=== PATIENT | female | born 1950 | race Hispanic/Latino ===

== ENCOUNTER 2018-02-20 13:43 | Inpatient (IN) | payer MEDICARE ==
[2018-02-20] MEDS ORDERED: Lidocaine/Epi 1% 1:100000 20 ML IJ STA (14:43)
[2018-02-20] MEDS ORDERED: LIDOCAIN/EPI 1-0.001% 10ML INJ SOL IJ ONE (15:14)
--- NOTE | 2018-02-20 15:38 | RAD ---
PROCEDURE: CHEST RADIOGRAPH, 1 VIEW HISTORY: routine med exam COMPARISON: None available. FINDINGS: LUNGS: Clear. PLEURA: No pneumothorax or pleural fluid seen. CARDIOVASCULAR: No radiographic findings to suggest acute or significant cardiovascular disease. OSSEOUS STRUCTURES: No significant abnormalities. VISUALIZED UPPER ABDOMEN: Normal. OTHER FINDINGS: None. IMPRESSION: No active disease.
--- NOTE | 2018-02-20 15:40 | RAD ---
PROCEDURE: Right Knee Radiographs. HISTORY: s/p fall - r/o fx COMPARISON: None. FINDINGS: BONES: Comminuted fracture of the proximal right tibia. This includes an intra-articular component. There is a component of impaction. Impacted, comminuted fracture proximal right tibia. JOINTS: Suprapatellar effusion presumed to be hemarthrosis. JOINT EFFUSION: None. OTHER FINDINGS: None. IMPRESSION: Complex, comminuted fractures proximal right tibia and fibula. Associated joint effusion/hemarthrosis
--- NOTE | 2018-02-20 15:45 | ED PDOC ---
Arrival/HPI - General Chief Complaint: Trauma Time Seen by Provider: 02/20/18 14:36 Historian: Patient - History of Present Illness Narrative History of Present Illness (Text): 02/20/18 16:22 A 67 year old female, whose past medical history includes hypertension, menopuase, and diabetes type 2, presents to the emergency department complaining of s/p trip and fall. Patient reports she was closing the door, however resulted in slipping hand from doorknob, and fell backwards, tumbling down stairs. Patient notes pain to back of head and right knee pain. States she is unable to bare weight onto right knee. Patient denies any LOC, chest pain, shortness of breath, abdominal pain, or any other complaints at this time. No PMD Past Medical History - Provider Review Nursing Documentation Reviewed: Yes - Infectious Disease Hx of Infectious Diseases: None - Reproductive Menopause: Yes - Cardiac Hx Hypertension: Yes - Endocrine/Metabolic Hx Diabetes Mellitus Type 2: Yes - Psychiatric Hx Substance Use: No - Anesthesia Hx Anesthesia Reactions: No Family/Social History - Physician Review Nursing Documentation Reviewed: Yes Family/Social History: No Known Family HX Smoking Status: Light Smoker < 10 Cigarettes Daily Hx Alcohol Use: Yes Frequency of alcohol use: Socially Hx Substance Use: No Allergies/Home Meds Allergies/Adverse Reactions: Allergies moxifloxacin [From Avelox] Allergy (Verified 02/20/18 14:37) RASH Review of Systems - Physician Review All systems were reviewed & negative as marked: Yes - Review of Systems Musculoskeletal: Other (pain to back of head and right knee pain s/p trip and fall) Neurological: absent: Other (no LOC) Physical Exam Vital Signs Reviewed: Yes Vital Signs Temp Pulse Resp BP Pulse Ox 02/20/18 19:27 74 18 138/80 99 02/20/18 18:33 61 18 82/60 L 100 02/20/18 14:13 98.5 F 70 18 163/101 H 98 Temperature: Afebrile Blood Pressure: Hypertensive Pulse: Regular Respiratory Rate: Normal Appearance: Positive for: Well-Appearing Pain Distress: None Mental Status: Positive for: Alert and Oriented X 3 - Systems Exam Head: Present: Laceration (1 1/2 cm laceration to caudal aspect of head) Respiratory/Chest: Present: Clear to Auscultation, Good Air Exchange. No: Respiratory Distress, Accessory Muscle Use Cardiovascular: Present: Regular Rate and Rhythm, Normal S1, S2. No: Murmurs Abdomen: No: Tenderness, Distention, Peritoneal Signs Lower Extremity: Present: Swelling (right knee). No: Normal ROM (decreased ROM to right knee) Neurological: Present: GCS=15, CN II-XII Intact, Speech Normal Psychiatric: Present: Alert, Oriented x 3, Normal Insight, Normal Concentration Medical Decision Making ED Course and Treatment: 02/20/18 Impression: 67 year old female with pain to back of head and right knee pain s/ p trip and fall. Physical exam shows 1 1/2 cm laceration to caudal aspect of head; right knee: decreased ROM and swelling. Plan: -- Right Knee X-Ray -- Chest X-ray -- Lidocaine/Epi 1% -- Reassess and disposition Progress Notes: 02/20/2018 15:36 Chest X-ray IMPRESSION: No active disease. Dictator: Kale Mike MD 02/20/2018 15:38 Right Knee X-ray IMPRESSION: Complex, comminuted fractures proximal right tibia and fibula. Associated joint effusion/hemarthrosis. Dictator: Kale Mike MD 02/20/2018 18:[address] IMPRESSION: No CT evidence of acute intracranial hemorrhage. Poorly defined slightly hypderdense process in the left parietal lobe with two small calcifications and evidence of association with a vessel. Bilateral white matter hypoattenuation most consistent with chronic ischemic small vessel changes. Known history of AVM. Recommend comparison with prior imaging which si not available at time of interpretation. Follow-up as warranted. Evidence of right posterior parietal scalp injury with skin justin noted. Partial visualization of maxillary sinus disease with evidence of mucous retention cysts versus polyps. Dictator: Reta Kolb MD 02/20/18 19:[address] Roberts for admission. Also talked to Dr. Perla, orthopedic, to see patient tomorrow morning. Patient's right knee placed in immobilizer. 02/20/2018 20:17 Lower Extremity IMPRESSION: Slightly impacted comminuted fracture through the proximal right tibial metaphysis with fracture lines extending to the level of the tibial plateau posteriorly and laterally. Comminuted fracture involving the proximal fibula with displaced fracture fragments. Tricompartmental degenerative changes with joint line spurring. Lipohemarthrosis. Evidence of hematoma with some acute blodo at the posterior aspect of the proximal fibula. Small fragments placed into the soft tissue. Dictator: Reta Kolb MD - Lab Interpretations Lab Results: 02/20/18 17:54 02/20/18 17:54 Lab Results 02/20/18 17:55: Blood Type A NEGATIVE, Antibody Screen Negative, BBK History Checked No verified bt 02/20/18 17:54: Sodium 140, Potassium 3.7, Chloride 99, Carbon Dioxide 30, Anion Gap 14, BUN 19, Creatinine 0.5 L, Est GFR ( Amer) > 60, Est GFR ( Non-Af Amer) > 60, Random Glucose 117 H, Calcium 9.1, Total Bilirubin 0.2, AST 41 H, ALT 25, Alkaline Phosphatase 96, Total Protein 6.9, Albumin 3.9, Globulin 3.0, Albumin/Globulin Ratio 1.3 02/20/18 17:54: PT 12.2, INR 1.07, APTT 27.8 02/20/18 17:54: WBC 13.9 H, RBC 4.37, Hgb 14.0, Hct 40.6, MCV 92.9, MCH 32.0, MCHC 34.5, RDW 13.0, Plt Count 216, MPV 9.7, Gran % 83.9 H, Lymph % (Auto) 9.3 L , Guthrie % (Auto) 6.2 H, Eos % (Auto) 0.3 L, Baso % (Auto) 0.3, Gran # 11.68 H, Lymph # (Auto) 1.3, Guthrie # (Auto) 0.9 H, Eos # (Auto) 0.0, Baso # (Auto) 0.04 - RAD Interpretation Radiology Orders: 02/20/18 14:42 KNEE RIGHT 2 VIEWS (AP & LAT) [RAD] Stat 02/20/18 15:20 CHEST ONE VIEW [RAD] Stat 02/20/18 16:26 EXT LOWER W/O CONTRAST RIGHT [CT] Stat HEAD W/O CONTRAST [CT] Stat - Medication Orders Current Medication Orders: Sodium Chloride (Sodium Chloride 0.9%) 1,000 mls @ 250 mls/hr IV .Q4H ONE Stop: 02/20/18 22:39 Last Admin: 02/20/18 18:57 Dose: 250 mls/hr eMAR Start Stop Document 02/20/18 18:57 EQ (Rec: 02/20/18 18:57 EQ [id number]) Intravenous Solution Start Date 02/20/18 Start Time 18:57 Discontinued Medications Ketorolac Tromethamine (Toradol) 30 mg IVP STAT STA Stop: 02/20/18 16:35 Last Admin: 02/20/18 17:34 Dose: 30 mg MAR Pain Assessment Document 02/20/18 17:34 EQ (Rec: 02/20/18 17:34 EQ [id number]) Pain Reassessment Is this a pain reassessment? No Sleep Is patient sleeping during reassessment? No Presence of Pain Presence of Pain Yes IVP Administration Document 02/20/18 17:34 EQ (Rec: 02/20/18 17:34 EQ [id number]) Charges for Administration # of IVP Administrations 1 Lidocaine/Epinephrine (Lidocaine/Epi 1% 1:798005 20 Ml) 7 ml IJ STAT STA Stop: 02/20/18 14:44 Last Admin: 02/20/18 17:34 Dose: Not Given Non-Admin Reason: Patient Refused Morphine Sulfate (Morphine) 2 mg IVP STAT STA Stop: 02/20/18 19:25 Last Admin: 02/20/18 19:30 Dose: 2 mg MAR Pain Assessment Document 02/20/18 19:30 EQ (Rec: 02/20/18 20:47 EQ [id number]) Pain Reassessment Is this a pain reassessment? No Sleep Is patient sleeping during reassessment? No Presence of Pain Presence of Pain Yes IVP Administration Document 02/20/18 19:30 EQ (Rec: 02/20/18 20:47 EQ [id number]) Charges for Administration # of IVP Administrations 1 - Scribe Statement The provider has reviewed the documentation as recorded by the Lynn Neri Provider Scribe Attestation: All medical record entries made by the Scribe were at my direction and personally dictated by me. I have reviewed the chart and agree that the record accurately reflects my personal performance of the history, physical exam, medical decision making, and the department course for this patient. I have also personally directed, reviewed, and agree with the discharge instructions and disposition. Disposition/Present on Arrival - Present on Arrival Any Indicators Present on Arrival: No History of DVT/PE: No History of Uncontrolled Diabetes: No Urinary Catheter: No History of Decub. Ulcer: No History Surgical Site Infection Following: None - Disposition Have Diagnosis and Disposition been Completed?: Yes Diagnosis: Scalp laceration, Knee fracture, right Disposition: HOSPITALIZED Disposition Time: 16:10 Condition: STABLE
[2018-02-20 17:57] LABS: BASO # 0.04 K/mm3 (0.0-2.0); BASO % 0.3 % (0.0-3.0); EOS % 0.3 % (1.5-5.0); GRAN # 11.68 (1.4-6.5); GRAN % 83.9 % (50.0-68.0); LYMPH # 1.3 (1.2-3.4); LYMPH % 9.3 % (22.0-35.0); MEAN CELL VOLUME 92.9 fl (80.0-105.0); MEAN CORPUSCULAR HGB CONC 34.5 g/dl (31.0-37.0); MEAN PLATELET VOLUME 9.7 fl (7.0-11.0); MONO # 0.9 (0.1-0.6); MONO % 6.2 % (1.0-6.0); RBC 4.37 10^6/uL (3.5-6.1); WHITE BLOOD COUNT 13.9 10^3/ul (4.5-11.0)
[2018-02-20 18:09] LABS: ALB/GLOB RATIO 1.3 (1.1-1.8); ALBUMIN 3.9 g/dL (3.0-4.8); ALT/SGPT 25 U/L (7-56); AST/SGOT 41 U/L (14-36); BLOOD UREA NITROGEN 19 mg/dL (7-21); CALCIUM 9.1 mg/dL (8.4-10.5); GFR AFRICAN-AMERICAN > 60; GFR NON-AFRICAN AMERICAN > 60
[2018-02-20 18:21] LABS: INR 1.07 (0.93-1.08); PARTIAL THROMBOPLASTIN TIME 27.8 Seconds (25.1-36.5); PROTHROMBIN TIME 12.2 SECONDS (9.4-12.5)
[2018-02-20] MEDS ORDERED: Morphine 2 mg/ml ISec IVP STA ×2 (18:25→19:24)
[2018-02-20] MEDS ORDERED: Morphine 4 mg/ml ISec IVP STA (18:26)
[2018-02-20] MEDS ORDERED: Sodium Chloride 0.9% 1,000 ML IV ONE (18:40)
--- NOTE | 2018-02-20 18:51 | CT ---
EXAM: CT Head Without Intravenous Contrast CLINICAL HISTORY: 67 years old, female; Injury or trauma; Fall; Initial encounter; Blunt trauma (contusions or hematomas); Consciousness not specified; Patient HX: HX: Avm; Additional info: R/O ich FX TECHNIQUE: Axial computed tomography images of the head/brain without intravenous contrast. All CT scans at this facility use one or more dose reduction techniques, viz.: automated exposure control; ma/kV adjustment per patient size (including targeted exams where dose is matched to indication; i.e. head); or iterative reconstruction technique. Coronal and sagittal reformatted images were created and reviewed. COMPARISON: No relevant prior studies available. FINDINGS: Brain: Poorly defined slightly hyperdense process in the left parietal lobe with two small calcifications and evidence of association with a vessel. Bilateral white matter hypoattenuation most consistent with chronic ischemic small vessel changes. No evidence of acute hemorrhage. No edema. Ventricles: No hydrocephalus. Bones/joints: Skull is intact. Soft tissues: Evidence of right posterior parietal scalp injury with skin justin noted. Sinuses: Partial visualization of maxillary sinus disease with evidence of mucous retention cysts versus polyps. No acute sinusitis. Mastoid air cells: No mastoid effusion. IMPRESSION: No CT evidence of acute intracranial hemorrhage. Poorly defined slightly hyperdense process in the left parietal lobe with two small calcifications and evidence of association with a vessel. Bilateral white matter hypoattenuation most consistent with chronic ischemic small vessel changes. Known history of AVM. Recommend comparison with prior imaging which is not available at time of interpretation. Followup as warranted. Evidence of right posterior parietal scalp injury with skin jsutin noted. Partial visualization of maxillary sinus disease with evidence of mucous retention cysts versus polyps.
[2018-02-20 20:15] VITALS: BMI 23.2
--- NOTE | 2018-02-20 20:17 | CT ---
EXAM: CT Right Lower Extremity Without Intravenous Contrast, Knee CLINICAL HISTORY: 67 years old, female; Injury or trauma; Fall; Initial encounter; Blunt trauma; Knee; Right; Additional info: S/P fall - follow up to knee x-rays today TECHNIQUE: Axial computed tomography images of the right knee without intravenous contrast. All CT scans at this facility use one or more dose reduction techniques, viz.: automated exposure control; ma/kV adjustment per patient size (including targeted exams where dose is matched to indication; i.e. head); or iterative reconstruction technique. COMPARISON: DX - KNEE RIGHT 2 VIEWS (AP LAT) 2018-02-20 15:15 FINDINGS: Bones/joints: Slightly impacted comminuted fracture through the proximal right tibial metaphysis with fracture lines extending to the level of the tibial plateau posteriorly and laterally. Comminuted fracture involving the proximal fibula with displaced fracture fragments. Tricompartmental degenerative changes with joint line spurring. Soft tissues: Lipohemarthrosis. Evidence of hematoma with some acute blood at the posterior aspect of the proximal fibula. Small fragments placed into the soft tissue. IMPRESSION: Slightly impacted comminuted fracture through the proximal right tibial metaphysis with fracture lines extending to the level of the tibial plateau posteriorly and laterally. Comminuted fracture involving the proximal fibula with displaced fracture fragments. Tricompartmental degenerative changes with joint line spurring. Lipohemarthrosis. Evidence of hematoma with some acute blood at the posterior aspect of the proximal fibula. Small fragments placed into the soft tissue.
[2018-02-20] MEDS: Oxycodone/Acetaminophen 5/325 mg Tab PO PRN (22:58)
[2018-02-20] MEDS: Lactated Ringer's 1,000 ML IV SCH (23:51)
[2018-02-21 01:20] LABS: URINE BILIRUBIN NEGATIVE (NEGATIVE); URINE BLOOD NEGATIVE (NEGATIVE); URINE GLUCOSE (UA) NEGATIVE (NEGATIVE); URINE LEUKOCYTE ESTERASE SMALL Leu/uL (NEGATIVE); URINE PROTEIN NEGATIVE mg/dL (<30 mg/dL); URINE UROBILINOGEN 0.2 E.U./dL (<1 E.U./dL)
[2018-02-21 01:29] LABS: URINE APPEARANCE CLEAR (CLEAR); URINE COLOR YELLOW (YELLOW)
[2018-02-21 01:31] LABS: URINE BACTERIA TRACE (NEG); URINE RBC 0 - 2 /hpf (0-2)
[2018-02-21] MEDS: Oxycodone/Acetaminophen 5/325 mg Tab PO PRN ×4 (02:03→21:22)
[2018-02-21] MEDS: Pantoprazole 40 mg EC Tab PO SCH ×2 (05:50→17:26)
--- NOTE | 2018-02-21 06:13 | HP ---
DATE OF EXAM: 02/20/2018 HISTORY OF PRESENT ILLNESS: Patient is a 67-year-old female. She is admitted to room 561, bed 1. She presented to the emergency room after a fall. Patient sustained an injury to the right knee with the comminuted fracture. Patient had severe pain at the time. She was brought in by ambulance to the ER. Patient is traveling from [place]. She is not a resident in [place]. The patient's past medical history is significant that she is not taking any medicines for diabetes or hypertension. Patient has no history of smoking. She occasionally takes alcohol. She has been evaluated and admitted to the medical floor. Orthopedic surgeon, Dr. Laurent Dickey has been notified. The primary care physician is Dr. Roberts. I am covering for Dr. Roberts. PHYSICAL EXAMINATION: GENERAL: She is very pleasant and answers all questions and patient has an injury to the back of the head of the right side. She has a laceration, which is clipped and looks perfect. The patient's rest of the body is okay excepting the right knee is injured and the fracture shows comminuted fracture. The knee involving the tibial plateau. VITAL SIGNS: The patient's temperature is 98.5, patient's blood pressure was 138/80, respirations are 18, O2 saturation 99% on room air. HEENT: The patient's head is normocephalic excepting the laceration of the back of the head, which is acute. NECK: The thyroid is not enlarged. Carotid pulses are present. JVP is flat. No lymphadenopathy. LUNGS: Trachea is central. Breath sounds are vesicular. No adventitious sounds. HEART: Normal sinus rhythm. S1, S2 present. No murmurs. ABDOMEN: Soft. Liver and spleen not palpable. CENTRAL NERVOUS SYSTEM: Patient is conscious, rational, oriented. The cranial nerves are intact. Patient's motor, sensory functions are good. I have not checked balance and gait because of the patient's injury to the right knee. The patient is aware of the injury and the necessary treatment. The patient will be seen by the Orthopedic surgeon and will have to perform surgical treatment on the right knee. LABORATORY DATA: The patient's blood work was done in the emergency room at this time. The patient's white count was 13,900, the differential showed 83% polys, 9% lymphocytes and 6% monocytes. Patient's chemistry is within normal limit. Blood sugar was 117 and all chemical parameters including BUN and creatinine are normal. Patient's chest x-ray is clear. The EKG was done. The patient's EKG is not read. Patient will have EKG if it was not done. I was informed that it was. . ADMITTING DIAGNOSIS: Fracture of the right knee. PATIENT HAS ALLERGY TO AVELOX, WHICH IS AN ANTIBIOTIC and that is the significant note. The patient is admitted to the fifth floor, room 561, as mentioned. Suhail Owens MD
[2018-02-21 07:03] LABS: BASO # 0.04 K/mm3 (0.0-2.0); BASO % 0.5 % (0.0-3.0); EOS % 0.5 % (1.5-5.0); GRAN # 6.06 (1.4-6.5); LYMPH % 23.1 % (22.0-35.0); MEAN CELL VOLUME 92.5 fl (80.0-105.0); MEAN CORPUSCULAR HEMOGLOBIN 31.3 pg (25.0-35.0); MEAN CORPUSCULAR HGB CONC 33.8 g/dl (31.0-37.0); MEAN PLATELET VOLUME 9.9 fl (7.0-11.0); MONO # 0.6 (0.1-0.6); MONO % 6.9 % (1.0-6.0); RBC 3.71 10^6/uL (3.5-6.1); RED CELL DISTRIBUTION WIDTH 13.2 % (11.5-14.5); WHITE BLOOD COUNT 8.8 10^3/ul (4.5-11.0)
[2018-02-21 07:21] LABS: HEMOGLOBIN 11.6 g/dL (12.0-16.0)
[2018-02-21 07:49] LABS: ALB/GLOB RATIO 1.3 (1.1-1.8); ALBUMIN 3.2 g/dL (3.0-4.8); ALT/SGPT 20 U/L (7-56); AST/SGOT 17 U/L (14-36); BLOOD UREA NITROGEN 17 mg/dL (7-21); CALCIUM 8.4 mg/dL (8.4-10.5); GFR AFRICAN-AMERICAN > 60; GFR NON-AFRICAN AMERICAN > 60; HDL CHOLESTEROL 58 mg/dL (29-60); URIC ACID 3.9 mg/dL (2.5-6.2)
[2018-02-21 07:59] LABS: FREE T4 1.13 ng/dL (0.78-2.19); LDL CHOLESTEROL 68 mg/dL (0-129); T4 7.4 ug/dL (5.5-11.0)
[2018-02-21] MEDS ORDERED: Potassium Chloride 40 mEq/30 ml LIQ UD PO ONE (08:07)
[2018-02-21] MEDS: Magnesium Sulfate 2 GM in Sodium Chloride 0.9% 100 ML IVPB SCH ×2 (09:00→10:39)
[2018-02-21] MEDS: Levothyroxine 200 MCG TAB PO SCH (10:45)
--- NOTE | 2018-02-21 12:26 | CARD ---
APPROVED REPORT EKG Measurement Heart [id number] <Conclusion> Normal sinus rhythm Normal ECG
--- NOTE | 2018-02-21 12:41 | PN ---
DATE: 02/21/2018 SUBJECTIVE: The patient is seen in room 561, bed 1. The patient is lying in the bed. The patient was seen and admitted by Dr. Owens on 02/20/2018. The patient is seen and examined. The patient's overnight nurse's notes were reviewed. No adverse events were documented. PHYSICAL EXAMINATION: VITAL SIGNS: Noted. The patient is seen lying in the bed comfortable with right knee elevated, right leg elevated. T-max 98.2; heart rate 72-74; blood pressure 138/60, 138/80, 140/72; respirations 18-20; O2 sat 98-99%. HEENT: Head examination normocephalic, atraumatic. HEENT examination shows pink conjunctivae. Anicteric sclerae. No oropharyngeal lesion. No neck rigidity. CHEST: Kyphosis. LUNGS: Shows no rales, crackles or wheezing. CARDIOVASCULAR: S1 and S2. Questionable soft systolic murmur, left sternal border, right second intercostal space, left second intercostal space. ABDOMEN: Soft. Positive bowel sound. Positive surgical scar of lumbar spine surgery. GENITALIA: Female. RECTAL: Deferred. EXTREMITY: Shows positive right knee swelling and right proximal leg swelling with positive right knee immobilizer. No pitting edema noted. MUSCULOSKELETAL: Shows a body mass index of 23.3. NEUROLOGICAL: The patient is alert, awake, oriented x3. Decreased range of motion of the right lower extremity. Gait examination is not tested. DIAGNOSTICS: CBC from 02/21/2018. WBC 8.8, down from 13.9; hemoglobin and hematocrit 11.6 and 34.3; platelet 200,000. Granulocytes 69,000 from 84,000. PT/PTT is normal. Sodium 134, potassium 3.8, chloride 99, CO2 of 28, anion gap 12, BUN 17, creatinine 0.7, GFR greater than 60, glucose 125, uric acid 3.9, calcium 8.4, phosphorus 3, magnesium 1.4. LFTs are normal. Cholesterol 149, triglyceride 101, LDL 68, HDL 58, TSH 1.29, T4 is 7.4. Urine pH 7, specific gravity 1.020, small leukocyte esterase, trace bacteria. Blood type is A negative. The patient's knee x-ray, chest x-ray, CT head and CT of the right lower extremity was reviewed. The patient's imaging studies all reviewed. The patient's all diagnostic data reviewed. IMPRESSION AND PLAN: 1. Status post mechanical fall. 2. Right proximal tibia comminuted fracture with swelling and impacted comminuted fracture of the proximal right tibia and fibula associated with right joint effusion and hemarthrosis. 3. Status post right-sided skull contusion. 4. Chronic small-vessel ischemic disease of the brain. 5. Right posteroparietal scalp soft tissue injury. 6. Maxillary sinus mucus retention cyst versus polyps. 7. History of left brain arteriovenous malformation. 8. History of hypertension, hyperlipidemia, type 2 diabetes mellitus, history of hypothyroidism. The patient has history of lumbar laminectomy for lumbar spinal stenosis, history of tonsillectomy, history of left-sided arteriovenous malformation of the brain, history of tubal ligation. 9. History of tubal ligation. 10. History of hypertensive crises in 07/2017, had a complete workup including carotid Doppler, echocardiogram, stress test, abdominal Doppler, which were negative as the patient. History of uncontrolled hypertension. 11. Transient leukocytosis and granulocytosis. 12. Mild normocytic anemia. 13. Hypomagnesemia. 14. Type 2 diabetes mellitus with hyperglycemia. 15. History of hyperlipidemia. 16. History of hypothyroidism. 17. Pyuria and bacteriuria. 18. Right proximal tibia metaphysis impacted comminuted fracture with fracture line extending to the level of the tibial plateau posteriorly and laterally and comminuted fracture of the proximal fibula with displaced fracture fragment. 19. Right knee tricompartmental degenerative joint disease with joint line spurring. 20. Lipohemarthrosis of the right knee. 21. Right knee posterior aspect proximal fibula hematoma. 22. Right knee joint hematoma. 23. Status post fall. 24. Gait dysfunction. Plan at this time, the patient has been ordered repeat labs. Hemoglobin A1c is pending. Vitamin D 25-hydroxy is pending. Urine cultures are unconnected. Current consultation, Cardiology for preop clearance, Orthopedics. Type and screen are ordered. The patient's is resumed on Fosamax 70 mg weekly, heparin 5000 subcu every 8 for deep venous thrombosis prophylaxis, Ringer's lactate 60 mL an hour, Lipitor 10 mg at bedtime, magnesium sulfate 2 g riders given, Maxipime 1 g IV every 12 for possible urinary tract infection. The patient resumed on Mysoline 50 mg four times daily. The patient is on Percocet 5/325 two tablets every 4 p.r.n. The patient is supplemented with potassium, Protonix 40 daily, Prozac 20 mg daily. The patient is on Synthroid 200 mcg daily, vitamin C 500 mg three times a day, Zofran 4 mg IV every 4 p.r.n. Incentive spirometer ordered. The patient will be put on n.p.o. diet for tomorrow. The patient has been ordered sequential compression devices, ELDA stockings. At present, the patient's further management will be dependent upon the patient's clinical condition, hemodynamic status and as per the patient's response to therapeutic intervention, as per the patient's diagnostic test results and as per recommendation by all the physicians involved in the care of the patient. The patient has been advised about her clinical condition. The patient appears to be at least moderate risk for surgical intervention due to her multiple comorbidities for surgery of the right proximal tibia and fibula fracture. Dictated and electronically signed, not read. Braulio Roberts MD
[2018-02-21] MEDS: Cefepime 1gm in NS 100ml 1 GM/100 ML BAG IVPB SCH ×2 (12:46→21:21)
--- NOTE | 2018-02-21 14:20 | CON ---
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 She apparently tripped while opening a door. No loss of consciousness noted. PAST MEDICAL HISTORY: Includes hypertension, hypercholesterolemia as well as diabetes mellitus. She underwent a stress test recently in [place], it was unremarkable. She has no previous cardiac history. SOCIAL HISTORY The patient does not smoke. REVIEW OF SYSTEMS: The 14-point review of systems was reviewed in detail. No cardiac symptomatology is noted. PHYSICAL EXAMINATION: VITAL SIGNS: Blood pressure is 140/72, heart rate in the 70s. NECK: Negative JVD. LUNGS: Without rales. HEART: Reveal S1, S2. EXTREMITIES: The right lower extremity is in an immobilizer, the left leg without edema. DATA: EKG is within normal limits. Hemoglobin is 11.6, glucose is 125. IMPRESSION: 1. Status post fall. 2. Lower extremity fracture. 3. Diabetes mellitus. 4. Hypertension. 5. Hypercholesterolemia. Given these findings, there are no cardiac issues and no cardiac contraindications to her planned surgery. Aubrey Beckwith MD
--- NOTE | 2018-02-21 14:23 | CON ---
DATE: 02/21/2018 INPATIENT CONSULT REASON FOR CONSULT: Right proximal tibia fracture. HISTORY OF PRESENT ILLNESS: This is a 67-year-old female who presented status post fall yesterday with complaints of right knee pain. The patient denies loss of consciousness and denies any other pain. She denies any numbness or tingling in the right lower extremity. PHYSICAL EXAMINATION: GENERAL: This is a female, in no apparent distress. She is awake, alert and oriented x3. EXTREMITIES: Evaluation of the right knee shows she has an obvious right knee effusion. Her thigh and calf are soft and nontender. She does have some tenderness over the proximal tibia. No gross crepitus is appreciated. No gross varus valgus instability is appreciated; however, the exam is limited secondary to the pain and swelling. Grossly, she is neurovascularly intact. LABORATORY DATA: X-rays show what looks like a bicondylar proximal tibia fracture. There appears to be some comminution. IMPRESSION: Right tibial plateau fracture. PLAN: At this point, I recommend ice, elevation. We will give her some DVT prophylaxis. She had a CAT scan done and we will review that for preoperative planning. For now, we will reassess the soft tissue tomorrow for possible surgery. However, I did explain to the patient that if there is significant amount of swelling, definitive ORIF maybe delayed for up to 2 weeks to allow the swelling to subside. She understands this, we will continue to follow. Laurent Dickey MD
--- NOTE | 2018-02-21 15:17 | CP.PCM.PN ---
Subjective - Date & Time of Evaluation Date of Evaluation: 02/21/18 Time of Evaluation: 14:49 - Subjective Subjective: Medicine progress note: Dr. Roberts Patient seen and examined at bedside. Patient's pain is well controlled, denies any new complaints. Objective - Vital Signs/Intake and Output Vital Signs (last 24 hours): Temp Pulse Resp BP Pulse Ox 98.2 F 72 20 140/72 98 02/21/18 06:00 02/21/18 06:00 02/21/18 06:00 02/21/18 06:00 02/21/18 06:00 Intake and Output: 02/21/18 02/21/18 06:59 18:59 Intake Total 360 360 Balance 360 360 - Medications Medications: Current Medications Ascorbic Acid (Vitamin C 500 Mg Tab) 500 mg PO TID [facility] Last Admin: 02/21/18 13:33 Dose: 500 mg Atorvastatin Calcium (Lipitor) 10 mg PO HS DANA Fluoxetine HCl (Prozac) 20 mg PO HS [facility] Heparin Sodium (Porcine) (Heparin) 5,000 units SC Q8 DANA PRN Reason: Protocol Last Admin: 02/21/18 13:28 Dose: 5,000 units Lactated Ringer's (Lactated Ringer's) 1,000 mls @ 60 mls/hr IV .[id number] [facility] Last Admin: 02/20/18 23:51 Dose: 60 mls/hr Cefepime HCl (Maxipime 1gm) 1 gm in 100 mls @ 100 mls/hr IVPB Q12 DANA PRN Reason: Protocol Last Admin: 02/21/18 12:46 Dose: 100 mls/hr Levothyroxine Sodium (Synthroid) 200 mcg PO DAILY [facility] Last Admin: 02/21/18 10:45 Dose: 200 mcg Non-Formulary Medication (Alendronate Sodium/Vitamin D3 [Fosamax Plus D 70 Mg-5, 600 Iu]) 1 tab PO QWK [facility] Ondansetron HCl (Zofran Inj) 4 mg IVP Q4H PRN PRN Reason: Nausea/Vomiting Oxycodone/Acetaminophen (Percocet 5/325 Mg Tab) 2 tab PO Q4H PRN PRN Reason: Pain, moderate (4-7) Stop: 02/23/18 22:27 Last Admin: 02/21/18 08:49 Dose: 2 tab Pantoprazole Sodium (Protonix Ec Tab) 40 mg PO 0600,1600 [facility] Last Admin: 02/21/18 05:50 Dose: 40 mg Primidone (Mysoline) 50 mg PO QID [facility] Last Admin: 02/21/18 13:33 Dose: 50 mg - Labs Labs: 02/21/18 06:20 02/21/18 06:20 PT 12.2 SECONDS (9.4-12.5) 02/20/18 17:54 INR 1.07 (0.93-1.08) 02/20/18 17:54 APTT 27.8 Seconds (25.1-36.5) 02/20/18 17:54 - Constitutional Appears: Well - Head Exam Head Exam: ATRAUMATIC, NORMAL INSPECTION, NORMOCEPHALIC - Eye Exam Eye Exam: EOMI, Normal appearance, PERRL Pupil Exam: NORMAL ACCOMODATION, PERRL - ENT Exam ENT Exam: Mucous Membranes Moist, Normal Exam - Neck Exam Neck Exam: Full ROM, Normal Inspection. absent: Lymphadenopathy - Respiratory Exam Respiratory Exam: Clear to Ausculation Bilateral, NORMAL BREATHING PATTERN - Cardiovascular Exam Cardiovascular Exam: REGULAR RHYTHM, +S1, +S2. absent: Murmur - GI/Abdominal Exam GI & Abdominal Exam: Soft, Normal Bowel Sounds. absent: Tenderness - Extremities Exam Extremities Exam: Tenderness. absent: Joint Swelling, Pedal Edema Additional comments: Patient's right knee swollen and casted with limtied ROM - Back Exam Back Exam: NORMAL INSPECTION - Neurological Exam Neurological Exam: Alert, Awake, CN II-XII Intact, Normal Gait, Oriented x3 - Psychiatric Exam Psychiatric exam: Normal Affect, Normal Mood - Skin Skin Exam: Dry, Intact, Normal Color, Warm Assessment and Plan - Assessment and Plan (Free Text) Assessment: 67 year old female presenting s/p fall with comminuted tibial diaphysis and fibular fractures. Patient's pain is well controlled at present. Plan Acute fracture - Tib/Fib - Ortho consult: Dr. Perla - NPO after midnight - Hold heparin after midnight - Maxipime; percocet; LR's History HLD - Lipitor History Hypothyroidism - Synthroid History Diabetes - Monitor; no home medications History Hypertension - Monitor; hold hypertension medications for now History Osteoarthritis - Alendonate sodium, Vit C, GI/DVT Prophylaxis - Heparin, Protonix
--- NOTE | 2018-02-21 15:23 | CARD ---
APPROVED REPORT EXAM: Two-dimensional and M-mode echocardiogram with Doppler and color Doppler. INDICATION Hypertension/HCVD 2D DIMENSIONS Left Atrium (2D)3.5 (1.6-4.0cm)IVSd1.0 (0.7-1.1cm) LVDd4.2 (3.9-5.9cm)PWd1.3 (0.7-1.1cm) LVDs2.9 (2.5-4.0cm)FS (%) 30.7 % LVEF (%)58.6 (>50%) M-Mode DIMENSIONS Aortic Root2.40 (2.2-3.7cm)Aortic Cusp Exc.1.30 (1.5-2.0cm) Aortic Valve AoV Peak Eskesvaq903.0cm/Sana Peak GR.6mmHg Mitral Valve MV E Tewnanqm15.2cm/sMV A Mwwiqfri98.4cm/sE/A ratio0.9 TDI E/Lateral E'0.0E/Medial E'0.0 Tricuspid Valve TR Peak Fcegmorv593dw/sRAP [id number] Peak Gr.20mmHg [id number] LEFT VENTRICLE The left ventricle is normal size. There is normal left ventricular wall thickness. The left ventricular function is normal.EF-55-60% There is normal LV segmental wall motion. Transmitral Doppler flow pattern is Grade III-reversible restrictive diastolic dysfunction. No left ventricle thrombus noted on this study. There is no ventricular septal defect visualized. There is no left ventricular aneurysm. There is no mass noted in the left ventricle. RIGHT VENTRICLE The right ventricle is normal size. There is normal right ventricular wall thickness. The right ventricular systolic function is normal. ATRIA The left atrium is mildly dilated. The right atrium size is normal. The interatrial septum is intact with no evidence for an atrial septal defect. AORTIC VALVE The aortic valve is thickened but opens well. There is trace aortic regurgitation. There is no aortic valvular stenosis. There is no aortic valvular vegetation. MITRAL VALVE The mitral valve is thickened but opens well. Mitral regurgitation is mild. There is no mitral valve stenosis. There is no evidence of mitral valve prolapse. TRICUSPID VALVE The tricuspid valve leaflets are thickened , but open well. There is trace to mild tricuspid regurgitation.RVsp-30 mmof hg. There is no tricuspid valve stenosis. There is no tricuspid valve prolapse or vegetation. PULMONIC VALVE The pulmonary valve is normal in structure. There is trace pulmonic valvular regurgitation. There is no pulmonic valvular stenosis. GREAT VESSELS The aortic root is normal in size. The ascending aorta is normal in size. The pulmonary artery is normal. The IVC is normal in size and collapses >50% with inspiration. PERICARDIAL EFFUSION There is no pleural effusion. There is no pericardial effusion. <Conclusion> The left ventricle is normal size. The left ventricular function is normal.EF-55-60% There is trace aortic regurgitation. Mitral regurgitation is mild. There is trace to mild tricuspid regurgitation.RVsp-30 mmof hg. The IVC is normal in size and collapses >50% with inspiration. There is no pericardial effusion.
[2018-02-21] MEDS: Lactated Ringer's 1,000 ML IV SCH (17:26)
[2018-02-21] MEDS ORDERED: Ergocalciferol 50,000 Intl Units Cap PO SCH (19:30)
[2018-02-22] MEDS: Oxycodone/Acetaminophen 5/325 mg Tab PO PRN (01:57)
[2018-02-22] MEDS: Pantoprazole 40 mg EC Tab PO SCH (05:44)
[2018-02-22 06:56] LABS: BASO # 0.05 K/mm3 (0.0-2.0); BASO % 0.6 % (0.0-3.0); EOS # 0.1 (0.0-0.7); EOS % 0.6 % (1.5-5.0); GRAN # 5.14 (1.4-6.5); GRAN % 66.2 % (50.0-68.0); HEMOGLOBIN 11.7 g/dL (12.0-16.0); LYMPH # 1.9 (1.2-3.4); LYMPH % 24.7 % (22.0-35.0); MEAN CELL VOLUME 92.8 fl (80.0-105.0); MEAN CORPUSCULAR HEMOGLOBIN 31.1 pg (25.0-35.0); MEAN CORPUSCULAR HGB CONC 33.5 g/dl (31.0-37.0); MEAN PLATELET VOLUME 9.9 fl (7.0-11.0); MONO # 0.6 (0.1-0.6); MONO % 7.9 % (1.0-6.0); RBC 3.76 10^6/uL (3.5-6.1); RED CELL DISTRIBUTION WIDTH 13.3 % (11.5-14.5); WHITE BLOOD COUNT 7.8 10^3/ul (4.5-11.0)
[2018-02-22 07:43] LABS: ALB/GLOB RATIO 1.2 (1.1-1.8); ALBUMIN 3.2 g/dL (3.0-4.8); ALT/SGPT 19 U/L (7-56); AST/SGOT 22 U/L (14-36); BLOOD UREA NITROGEN 9 mg/dL (7-21); CALCIUM 8.2 mg/dL (8.4-10.5); GFR AFRICAN-AMERICAN > 60; GFR NON-AFRICAN AMERICAN > 60
[2018-02-22] MEDS: Levothyroxine 200 MCG TAB PO SCH (10:30)
[2018-02-22] MEDS ORDERED: Bupivacaine 0.5% Inj(30mL) ONE (11:32)
[2018-02-22] MEDS ORDERED: Propofol 10 mg/ml Inj (20 ML) ONE (11:43)
[2018-02-22] MEDS ORDERED: Rocuronium 10 mg/ml (5 ml) ONE (12:08)
[2018-02-22] MEDS ORDERED: Sevoflurane - Inhalation Anesthetic Liq (250 ml) ONE (12:08)
[2018-02-22] MEDS: Cefepime 1gm in NS 100ml 1 GM/100 ML BAG IVPB SCH ×2 (12:20→21:15)
[2018-02-22] MEDS ORDERED: Magnesium Sulfate 2 GM in Sodium Chloride 0.9% 100 ML IVPB ONE (13:01)
[2018-02-22] MEDS ORDERED: Morphine 1 mg/ml preservative-free Inj(Duramorph) ONE (13:05)
--- NOTE | 2018-02-22 13:32 | PN ---
DATE: 02/22/2018 CARDIOLOGY FOLLOWUP SUBJECTIVE: The patient is comfortable. PHYSICAL EXAMINATION: VITAL SIGNS: Blood pressure is 165/80. NECK: Negative JVD. LUNGS: Without rales. HEART: Reveals S1, S2. EXTREMITIES: Without edema. LABORATORY DATA: Hemoglobin is 11.7. Chemistries, BUN and creatinine unremarkable. The glucose is 140. IMPRESSION: 1. Status post fall. 2. Tibial fracture. 3. Hypertension. 4. Mild anemia. 5. Diabetes mellitus. PLAN: Given these findings, the patient's cardiac status is stable for planned surgery today. Aubrey Beckwith MD
[2018-02-22] MEDS ORDERED: Neostigmine Methylsulfate 3mg/3ml Syringe IV ONE (15:06)
[2018-02-22] MEDS ORDERED: HYDROmorphone 0.5 mg/0.5 ml ISec IVP PRN (15:20)
[2018-02-22] MEDS ORDERED: Lactated Ringer's 1,000 ML IV SCH (15:30)
--- NOTE | 2018-02-22 15:33 | PCM.SURG1 ---
Surgeon's Initial Post Op Note - Surgeon's Notes Surgeon: Max Dickey MD [employer] Professor: German Waldron PA-C, Yesenia Garza PA-C Type of Anesthesia: General Endo Anesthesia Administered By: Dr. Wylie Pre-Operative Diagnosis: Right tibial plateau fx Operative Findings: tourniquet: 111min @300mmHg. Synthes plate Post-Operative Diagnosis: same Operation Performed: Right tibial plateau ORIF Specimen/Specimens Removed: none Estimated Blood Loss: EBL {In ML}: 20 Blood Products Given: N/A Drains Used: No Drains Post-Op Condition: Fair Date of Surgery/Procedure: 02/22/18 Time of Surgery/Procedure: 15:33
--- NOTE | 2018-02-22 15:34 | CP.PCM.PN ---
Subjective - Date & Time of Evaluation Date of Evaluation: 02/22/18 Time of Evaluation: 09:30 - Subjective Subjective: Medicine progress note: Dr. Roberts Patient seen and examined at bedside. Patient's pain is well controlled, she did not have any acute events overnight besides elevated blood pressure ( asymptomatic). She denies any new complaints. Objective - Vital Signs/Intake and Output Vital Signs (last 24 hours): Temp Pulse Resp BP Pulse Ox 99 F 75 20 165/80 H 95 02/22/18 10:05 02/22/18 10:05 02/22/18 10:05 02/22/18 10:05 02/22/18 10:05 Intake and Output: 02/22/18 02/22/18 06:59 18:59 Intake Total 1440 0 Balance 1440 0 - Medications Medications: Current Medications Acetaminophen (Tylenol 325mg Tab) 325 mg PO Q4 PRN PRN Reason: Fever >100.4 F Ascorbic Acid (Vitamin C 500 Mg Tab) 500 mg PO TID [facility] Last Admin: 02/22/18 09:59 Dose: Not Given Atorvastatin Calcium (Lipitor) 10 mg PO [facility] Last Admin: 02/21/18 21:21 Dose: 10 mg Docusate Sodium (Colace) 100 mg PO BID [facility] Last Admin: 02/22/18 09:58 Dose: Not Given Enoxaparin Sodium (Lovenox) 40 mg SC Q24H [facility] PRN Reason: Protocol Ergocalciferol (Drisdol 50,000 Intl Units Cap) 1 cap PO Q7D [facility] Last Admin: 02/21/18 21:21 Dose: 1 cap Fluoxetine HCl (Prozac) 20 mg PO [facility] Last Admin: 02/21/18 21:22 Dose: 20 mg Hydralazine HCl (Apresoline) 10 mg PO Q6H PRN PRN Reason: SBP>=170MMHG&/OR DBP>=100MMMHG Hydromorphone HCl (Dilaudid) 0.5 mg IVP Q15M PRN PRN Reason: Pain, moderate (4-7) Stop: 02/22/18 17:20 Hydromorphone HCl (Dilaudid) 0.5 mg IVP Q4H PRN PRN Reason: Pain, severe (8-10) Lactated Ringer's (Lactated Ringer's) 1,000 mls @ 60 mls/hr IV .[id number] [facility] Last Admin: 02/21/18 17:26 Dose: 60 mls/hr Cefepime HCl (Maxipime 1gm) 1 gm in 100 mls @ 100 mls/hr IVPB Q12 DANA PRN Reason: Protocol Last Admin: 02/22/18 12:20 Dose: 100 mls/hr Lactated Ringer's (Lactated Ringer's) 1,000 mls @ 75 mls/hr IV .[id number] [facility] Stop: 02/22/18 17:31 Cefazolin Sodium 2 gm/ Sodium (Chloride) 100 mls @ 200 mls/hr IVPB Q8H [facility] PRN Reason: Protocol Stop: 02/23/18 03:59 Levothyroxine Sodium (Synthroid) 200 mcg PO DAILY [facility] Last Admin: 02/21/18 10:45 Dose: 200 mcg Metoprolol Tartrate (Lopressor) 25 mg PO BID [facility] Multivitamins/Minerals (Therapeutic-M Tab) 1 tab PO DAILY [facility] Non-Formulary Medication (Alendronate Sodium/Vitamin D3 [Fosamax Plus D 70 Mg-5, 600 Iu]) 1 tab PO QWK [facility] Ondansetron HCl (Zofran Inj) 4 mg IVP Q4H PRN PRN Reason: Nausea/Vomiting Ondansetron HCl (Zofran Inj) 4 mg IVP ONCE PRN PRN Reason: Nausea/Vomiting Oxycodone/Acetaminophen (Percocet 5/325 Mg Tab) 2 tab PO Q4H PRN PRN Reason: Pain, moderate (4-7) Stop: 02/23/18 22:27 Last Admin: 02/22/18 01:57 Dose: 2 tab Pantoprazole Sodium (Protonix Ec Tab) 40 mg PO 0600,1600 [facility] Last Admin: 02/22/18 05:44 Dose: 40 mg Potassium Chloride (K-Dur 20 Meq Er Tab) 20 meq PO BRK [facility] Primidone (Mysoline) 50 mg PO QID [facility] Last Admin: 02/21/18 21:22 Dose: 50 mg - Labs Labs: 02/22/18 06:15 02/22/18 06:15 PT 12.2 SECONDS (9.4-12.5) 02/20/18 17:54 INR 1.07 (0.93-1.08) 02/20/18 17:54 APTT 27.8 Seconds (25.1-36.5) 02/20/18 17:54 - Constitutional Appears: Well - Head Exam Head Exam: ATRAUMATIC, NORMAL INSPECTION, NORMOCEPHALIC - Eye Exam Eye Exam: EOMI, Normal appearance, PERRL Pupil Exam: NORMAL ACCOMODATION, PERRL - ENT Exam ENT Exam: Mucous Membranes Moist, Normal Exam - Neck Exam Neck Exam: Full ROM, Normal Inspection. absent: Lymphadenopathy - Respiratory Exam Respiratory Exam: Clear to Ausculation Bilateral, NORMAL BREATHING PATTERN - Cardiovascular Exam Cardiovascular Exam: REGULAR RHYTHM, +S1, +S2. absent: Murmur - GI/Abdominal Exam GI & Abdominal Exam: Soft, Normal Bowel Sounds. absent: Tenderness - Extremities Exam Extremities Exam: Full ROM, Joint Swelling, Normal Capillary Refill. absent: Pedal Edema - Back Exam Back Exam: NORMAL INSPECTION Additional comments: Patient's right knee swollen and casted with limtied ROM - Neurological Exam Neurological Exam: Alert, Awake, CN II-XII Intact, Normal Gait, Oriented x3 - Psychiatric Exam Psychiatric exam: Normal Affect, Normal Mood - Skin Skin Exam: Dry, Intact, Normal Color, Warm Assessment and Plan - Assessment and Plan (Free Text) Assessment: 67 year old female presenting s/p fall with comminuted tibial diaphysis and fibular fractures. CT Head and CXR negative for acute trauma. Knee XR and Lower Extremity CT with results as mentioned. Patient's pain is well controlled at present. Initial white count elevated, likely reactive; no SIRS criteria, other labs and vitals stable. Yesterday, patient's anti- hypertensives were held, but Cozaar 100 was given early this morning, as patient became hypertensive overnight. Patient will undergo procedure with Dr. Perla today. Patient did show small LE on UA, but is asymptomatic, will observe for now Plan Acute fracture - Tib/Fib - Ortho consult: Dr. Perla - Baljeet; jaswantet; LR's History HLD - Lipitor History Hypothyroidism - Synthroid History Diabetes - Monitor; no home medications History Hypertension - Monitor; hold hypertension medications for now History Osteoarthritis - Alendonate sodium, Vit C GI/DVT Prophylaxis - Heparin, Protonix
--- NOTE | 2018-02-22 15:41 | RAD ---
PROCEDURE: Fluoroscopy up to 1 hour HISTORY: O.R.I.F. TIBIAL PLATEAU FX. (RIGHT) COMPARISON: TECHNIQUE: Fluoroscopy was provided in the operating room. 115.7 seconds of fluoro time. Cumulative dose 4.15 mGy. Four images were submitted FINDINGS: The study shows placement of a plate and multiple screws in the proximal tibia IMPRESSION: As above
--- NOTE | 2018-02-22 16:12 | RAD ---
PROCEDURE: Right Knee Radiographs. HISTORY: pt in pacu, s/p tibial plat ORIF COMPARISON: None. FINDINGS: BONES: Recent internal fixation of tibial fracture. There is a plate on the lateral side with multiple screws. There is also fracture of the proximal fibula JOINTS: Normal. No osteoarthritis. JOINT EFFUSION: None. OTHER FINDINGS: None. IMPRESSION: As above
[2018-02-22] MEDS: HYDROmorphone 0.5 mg/0.5 ml ISec IVP PRN ×2 (18:20→22:20)
[2018-02-22] MEDS: ceFAZolin 2 GM in Sodium Chloride 0.9% 100 ML IVPB SCH (18:43)
[2018-02-22] MEDS: Potassium Chloride 20 mEq ER Tab PO SCH (21:15)
--- NOTE | 2018-02-22 21:18 | PN ---
DATE: 02/22/2018 SUBJECTIVE: The patient is seen lying in the bed in room 561, bed 1. The patient is seen between the hours of 0930 1030. Overnight nurse's notes were reviewed. The patient is in the process of being prepped for the operating room. REVIEW OF SYSTEMS: The patient's 13-system review of complaints was positive for right knee pain. PHYSICAL EXAMINATION: VITAL SIGNS: The patient's blood pressure was slightly elevated 170/90. The patient required a dose of Cozaar. The patient's repeat vital signs were noted. T-max is 98.8. Heart rate 69-71, blood pressure in the in the last 24 hours 166/90, 162/86, 170/93 165/80. Respirations 20, O2 sat 100%. HEAD: Normocephalic, atraumatic. EENT: Shows pinkish pale conjunctivae. Anicteric sclerae. No oropharyngeal lesion. No neck rigidity. CHEST: Kyphosis. LUNGS: Shows no rales, crackles, or wheezing. CARDIOVASCULAR: Shows S1, S2, regular rhythm. Positive systolic murmur, right second intercostal space, left second intercostal space. ABDOMEN: Soft. Positive bowel sound. GENITALIA: Female. RECTAL: Deferred. EXTREMITIES: Shows no pitting edema, no calf tenderness, no Homans sign. Positive right knee swelling. Positive swelling of the right lower extremity. No swelling or edema of the left lower extremity. Decreased range of motion of the right lower extremity. Positive swelling and puffiness of the right knee. Positive knee immobilizer noted. MUSCULOSKELETAL: Shows a body mass index of 23.3. PSYCHIATRIC: Negative. DIAGNOSTIC DATA: On 02/22, WBC 7.8, hemoglobin/hematocrit 11.7 and 34.9, platelet 180. Granulocytes 66. Sodium 141, potassium 3.7, chloride 103, CO2 of 30, anion gap 11, BUN 9, creatinine 0.5, GFR greater than 60. and random glucose 140. Fingerstick blood sugar 125, 124 139, 127, 140. Hemoglobin A1c is 6.3. Uric acid 3.9, magnesium yesterday was 1.4. Today, magnesium is 1.8, phosphorus 2.6. LFTs are normal. Microbiology: Urine cultures less than 1000. Blood type A negative. Echocardiogram results were reviewed. IMPRESSION: 1. Status post mechanical fall. 2. Right proximal tibia and fibula comminuted dislocated fracture with swelling and impacted comminuted fracture of the proximal right tibia and fibula associated with right joint effusion and hemarthrosis. 3. Status post right-sided skull contusion. 4. Transient uncontrolled hypertension. 5. Leukocytosis with granulocytosis. 6. Mild normocytic anemia, probably dilutional. 7. Type 2 ooa-[id number]-[id number] diabetes mellitus with hemoglobin A1c of 6.3. 8. Hyperglycemia. 9. Hypovitaminosis D. 10. History of hypothyroidism. 11. Pyuria and bacteriuria. 12. Left ventricle ejection fraction of 58%. 13. Grade 2 reversible restrictive diastolic dysfunction. 14. Trace aortic regurgitation. 15. Mild mitral regurgitation. 16. Thickened tricuspid valve leaflet. 17. Mild tricuspid regurgitation. 18. Trace pulmonic regurgitation. 19. Impacted comminuted fracture through the proximal right tibial metaphysis with fracture line extending to the level of the tibial plateau posteriorly and laterally and comminuted fracture involving the proximal fibula with displaced fracture fragment. 20. Tricompartmental degenerative joint disease with joint line spurring. 21. Lipohemarthrosis of the right knee joint with hematoma and acute blood at the posterior aspect of the right proximal fibula. 22. History of left-sided cerebral arteriovenous malformation. 23. Left parietal lobe hyperdense process with calcification and small vessel ischemic disease of the brain and chronic microvascular ischemic disease of the brain. 24. Right posterior parietal scalp contusion. 25. Maxillary sinus retention cyst or polyps. 26. History of hyperlipidemia, history of lumbar laminectomy for lumbar spinal stenosis, history of tonsillectomy, and history of tubal ligation. 27. History of hypertensive crisis in 2017. 28. Mild leukocytosis and granulocytosis. 29. Gait dysfunction. PLAN: At this time, the patient is awaiting for orthopedic surgical intervention. The patient has been ordered repeat labs for the morning. The patient is on Fosamax 70 mg weekly. The patient has been started on hydralazine 10 mg p.o. every 6 hours p.r.n. for systolic blood pressure greater than or equal to 170, diastolic greater than or equal to 100; Colace 100 mg twice a day; Dilaudid 0.5 mg IV every 4 hours p.r.n.; Drisdol 50,000 weekly. The patient is started on K-Dur 20 mEq daily, Ringer's lactate at 60 mL an hour, Lipitor 10 mg daily, Lopressor 25 twice a day, Lovenox 40 mg subcu every 24 hours. The patient was given magnesium sulfate rider 2 g for magnesium 1.8. The patient is on cefepime 1 g IV every 12 hours, Mysoline 50 four times a day, Percocet 5 per 325 two tablets every 4 hours p.r.n. The patient is on Protonix 40 daily, Prozac 20 mg daily, Synthroid 200 mcg daily, multivitamin 1 tablet daily, Tylenol p.r.n., ascorbic acid 500 three times a day, Zofran 4 mg IV every 4 hours p.r.n. The patient is on incentive spirometry. At present, the patient's case is referred to Public Health Nurse for discharge planning. The patient will be followed up closely after surgical intervention. Dictated and electronically signed, not read. Braulio Roberts MD
[2018-02-23] MEDS: Oxycodone/Acetaminophen 5/325 mg Tab PO PRN ×4 (00:26→19:45)
--- NOTE | 2018-02-23 00:26 | OP ---
PROCEDURE DATE: 02/22/2018 PREOPERATIVE DIAGNOSIS: Right knee lateral tibial plateau fracture and degenerative joint disease. POSTOPERATIVE DIAGNOSIS: Right knee lateral tibial plateau fracture and degenerative joint disease. PROCEDURE: Open reduction and internal fixation of right lateral tibial plateau fracture. SURGEON: Laurent Dickey M.D. ASSISTANTS: Dr. Dickey is assisted by Marylin Holm, physician clinical laboratory assistant, as well as Juana Garza, the physician clinical laboratory assistant. Both Ms. Holm and Ms. Garza were scrubbed throughout the entire case and assisted in patient positioning, retraction, hardware placement as well as wound closure. TYPE OF ANESTHESIA: General. COMPLICATIONS: None. ESTIMATED BLOOD LOSS: 30 mL. TOURNIQUET TIME: 111 minutes at 300 mmHg. IMPLANTS: Synthes proximal tibial lateral locking plate. INDICATION FOR PROCEDURE: This is a 67-year-old female, who presented status post fall with right knee pain. Clinical examination was consistent with a lateral tibial plateau fracture. Neurologically, she was intact. Radiographic examination consistent with a displaced lateral tibial plateau fracture. Recommendations were for open reduction and internal fixation of the fracture. The risks, benefits and alternatives of procedure were discussed with the patient including nonunion, malunion, hardware failure, symptomatic hardware as well as progression of her arthritis. She understood these risks and the informed consent was obtained. DESCRIPTION OF PROCEDURE: After the surgical site was signed and verified in the preoperative holding area, the patient was taken to the operating room and placed supine on the operating room table. After administration of general anesthesia, a Gordon catheter was inserted. Patient received 1 g of Maxipime IV. The tourniquet was placed about the right lower extremity. Care was taken to make sure all bony prominences and nerves were well padded and protected and the right lower extremity was prepped and draped in usual sterile fashion. The right lower extremity was exsanguinated and the tourniquet was inflated. Bony landmarks were identified about the right knee. Anterolateral approach to the knee joint was taken. Soft tissue was dissected sharply down to the fascia and the fascia was incised and the anterior compartment musculature was subperiosteally elevated off of the proximal tibia exposing the lateral aspect of the proximal tibia. An arthrotomy was performed and a submeniscal approach was taken to allow for visualization of the articular surface. Three #2 FiberWire tacking sutures were placed in the meniscocapsular junction for later repair. At this point, after the meniscus had been elevated and the fracture was exposed, all fracture hematoma was evacuated and the wound was copiously irrigated with antibiotic saline solution. At this point, under direct visualization and using the C-arm image intensifier, the fracture was evaluated. Through the fracture site, using a combination of osteotomes and an elevator and bone tap, the articular surface fragments were elevated and this reduction was checked using the image intensifier in both the AP and lateral planes. Satisfied with our reduction, the void was then filled using allograft bone chips and DBM putty. These were inserted into the subchondral metaphyseal region of the proximal tibia and at this point using a bone reduction forceps, the lateral condyle was reduced to the remaining portion of the proximal tibia. The reduction provisionally held using a bone reduction forceps and K-wires. At this point, a 4-hole Synthes lateral proximal tibial plate was placed and a definite fixation was done using 5 screws proximally and 3 screws distally. All K-wires were removed and final reduction and placement of the hardware was checked using image intensifier, confirmed a good reduction and good placement of the hardware. At this point, the wound was copiously irrigated and the meniscus was repaired to the soft tissues as well as to the holes through the proximal tibia. The fascia was loosely approximated using #1 Vicryl suture. Please note that the tourniquet was inflated and an obvious bleeding was cauterized. The subcutaneous tissue was closed using 0-Vicryl and 2-0 Vicryl suture, and the skin was closed using 3-0 nylon. A BRITTANY negative-pressure wound VAC dressing was applied and a knee immobilizer was placed. The patient was awakened from the procedure and taken to the recovery room in a stable condition. Laurent Dickey MD
[2018-02-23] MEDS: HYDROmorphone 0.5 mg/0.5 ml ISec IVP PRN ×4 (01:50→23:55)
[2018-02-23] MEDS: ceFAZolin 2 GM in Sodium Chloride 0.9% 100 ML IVPB SCH (03:30)
[2018-02-23] MEDS: Pantoprazole 40 mg EC Tab PO SCH ×2 (05:12→16:13)
[2018-02-23] MEDS: Lactated Ringer's 1,000 ML IV SCH (06:08)
[2018-02-23 06:56] LABS: BASO # 0.04 K/mm3 (0.0-2.0); BASO % 0.3 % (0.0-3.0); EOS % 0.1 % (1.5-5.0); GRAN # 9.62 (1.4-6.5); GRAN % 81.1 % (50.0-68.0); HEMOGLOBIN 10.5 g/dL (12.0-16.0); LYMPH % 8.5 % (22.0-35.0); MEAN CELL VOLUME 94.4 fl (80.0-105.0); MEAN CORPUSCULAR HEMOGLOBIN 31.2 pg (25.0-35.0); MEAN PLATELET VOLUME 9.7 fl (7.0-11.0); MONO # 1.2 (0.1-0.6); RBC 3.37 10^6/uL (3.5-6.1); RED CELL DISTRIBUTION WIDTH 13.4 % (11.5-14.5); WHITE BLOOD COUNT 11.9 10^3/ul (4.5-11.0)
[2018-02-23 07:21] LABS: ALB/GLOB RATIO 1.2 (1.1-1.8); ALT/SGPT 27 U/L (7-56); AST/SGOT 21 U/L (14-36); BILIRUBIN,DIRECT 0.1 mg/dL (0.0-0.4); BLOOD UREA NITROGEN 11 mg/dL (7-21); CALCIUM 7.9 mg/dL (8.4-10.5); GFR AFRICAN-AMERICAN > 60; GFR NON-AFRICAN AMERICAN > 60
[2018-02-23] MEDS: Potassium Chloride 20 mEq ER Tab PO SCH (07:55)
--- NOTE | 2018-02-23 09:11 | CP.PCM.PN ---
Subjective - Date & Time of Evaluation Date of Evaluation: 02/23/18 Time of Evaluation: 09:01 - Subjective Subjective: Patient is POD #1 s/p ORIF right tibial plateau fracture. Patient alert and awake, laying in bed comfortable. Patient states pain is controlled. Evan d/c. Max temp 5am 101.1, temp now 99 WBC 11.9 Hgb 10.5 R knee: dressings are dry and intact with jon and knee immobilizer on. Thigh and calf are soft and nontender to palpation. NVI distally POD# 1 ORIF right tibial plateau fx Cont DVT prophylaxis Cont pain control Cont incentive spirometer Cont NWB Objective - Vital Signs/Intake and Output Vital Signs (last 24 hours): Temp Pulse Resp BP Pulse Ox 99 F 90 20 135/69 93 L 02/23/18 06:13 02/23/18 06:00 02/23/18 06:00 02/23/18 06:00 02/23/18 06:00 Intake and Output: 02/23/18 02/23/18 06:59 18:59 Intake Total 1200 Output Total 400 Balance 800 - Medications Medications: Current Medications Acetaminophen (Tylenol 325mg Tab) 325 mg PO Q4 PRN PRN Reason: Fever >100.4 F Ascorbic Acid (Vitamin C 500 Mg Tab) 500 mg PO TID [facility] Last Admin: 02/22/18 18:11 Dose: Not Given Atorvastatin Calcium (Lipitor) 10 mg PO HS [facility] Last Admin: 02/22/18 21:15 Dose: 10 mg Docusate Sodium (Colace) 100 mg PO BID [facility] Last Admin: 02/22/18 18:10 Dose: Not Given Enoxaparin Sodium (Lovenox) 40 mg SC Q24H [facility] PRN Reason: Protocol Ergocalciferol (Drisdol 50,000 Intl Units Cap) 1 cap PO Q7D [facility] Last Admin: 02/21/18 21:21 Dose: 1 cap Fluoxetine HCl (Prozac) 20 mg PO HS [facility] Last Admin: 02/22/18 21:15 Dose: 20 mg Hydralazine HCl (Apresoline) 10 mg PO Q6H PRN PRN Reason: SBP>=170MMHG&/OR DBP>=100MMMHG Hydromorphone HCl (Dilaudid) 0.5 mg IVP Q4H PRN PRN Reason: Pain, severe (8-10) Last Admin: 02/23/18 06:08 Dose: 0.5 mg Lactated Ringer's (Lactated Ringer's) 1,000 mls @ 60 mls/hr IV .[id number] [facility] Last Admin: 02/23/18 06:08 Dose: 60 mls/hr Cefepime HCl (Maxipime 1gm) 1 gm in 100 mls @ 100 mls/hr IVPB Q12 DANA PRN Reason: Protocol Last Admin: 02/22/18 21:15 Dose: 100 mls/hr Levothyroxine Sodium (Synthroid) 200 mcg PO DAILY [facility] Last Admin: 02/22/18 10:30 Dose: Not Given Metoprolol Tartrate (Lopressor) 25 mg PO BID [facility] Last Admin: 02/22/18 21:00 Dose: Not Given Multivitamins/Minerals (Therapeutic-M Tab) 1 tab PO DAILY [facility] Non-Formulary Medication (Alendronate Sodium/Vitamin D3 [Fosamax Plus D 70 Mg-5, 600 Iu]) 1 tab PO QWK [facility] Ondansetron HCl (Zofran Inj) 4 mg IVP Q4H PRN PRN Reason: Nausea/Vomiting Last Admin: 02/22/18 18:19 Dose: 4 mg Ondansetron HCl (Zofran Inj) 4 mg IVP ONCE PRN PRN Reason: Nausea/Vomiting Oxycodone/Acetaminophen (Percocet 5/325 Mg Tab) 2 tab PO Q4H PRN PRN Reason: Pain, moderate (4-7) Stop: 02/23/18 22:27 Last Admin: 02/23/18 05:10 Dose: 2 tab Pantoprazole Sodium (Protonix Ec Tab) 40 mg PO 0600,1600 [facility] Last Admin: 02/23/18 05:12 Dose: 40 mg Potassium Chloride (K-Dur 20 Meq Er Tab) 20 meq PO BRK [facility] Last Admin: 02/23/18 07:55 Dose: 20 meq Primidone (Mysoline) 50 mg PO QID [facility] Last Admin: 02/22/18 21:15 Dose: 50 mg - Labs Labs: 02/23/18 06:30 02/23/18 06:30 PT 12.2 SECONDS (9.4-12.5) 02/20/18 17:54 INR 1.07 (0.93-1.08) 02/20/18 17:54 APTT 27.8 Seconds (25.1-36.5) 02/20/18 17:54
[2018-02-23] MEDS: Multivitamin With Minerals Tab PO SCH (09:16)
[2018-02-23] MEDS: Levothyroxine 200 MCG TAB PO SCH (09:16)
[2018-02-23] MEDS: Cefepime 1gm in NS 100ml 1 GM/100 ML BAG IVPB SCH ×2 (09:18→21:56)
--- NOTE | 2018-02-23 09:32 | RAD ---
HISTORY: post op fever COMPARISON: 02/20/2018 FINDINGS: LUNGS: No active pulmonary disease. PLEURA: No significant pleural effusion identified, no pneumothorax apparent. CARDIOVASCULAR: No radiographic findings to suggest acute or significant cardiovascular disease. OSSEOUS STRUCTURES: No significant abnormalities. VISUALIZED UPPER ABDOMEN: Normal. OTHER FINDINGS: None. IMPRESSION: No active disease. No significant interval change compared to the prior examination(s).
--- NOTE | 2018-02-23 10:49 | PN ---
DATE: 02/23/2018 CARDIOLOGY FOLLOWUP SUBJECTIVE: The patient is without symptoms. She tolerated surgery well. PHYSICAL EXAMINATION: VITAL SIGNS: Blood pressure is 135/69, heart rates in the 90s. NECK: Negative JVD. LUNGS: Without rales. HEART: Reveal S1, S2. EXTREMITIES: Without edema. The right lower extremity is in an immobilizer. LABORATORY DATA: Hemoglobin is 10.5 from 11.6 preop, glucose is 142. IMPRESSION: 1. Status post fall. 2. Status post surgical repair of the tibial fracture. 3. Hypertension. 4. Diabetes mellitus. 5. Anemia. PLAN: The patient is stable post-surgery. No further cardiac workup is necessary at this time. Aubrey Beckwith MD
[2018-02-23] MEDS: Insulin Reg-LOW-Coverage SC SCH ×3 (11:44→22:00)
[2018-02-23] MEDS ORDERED: Vancomycin 1gm in NS 250ml 1 GM/250 ML BAG IVPB STA (12:01)
--- NOTE | 2018-02-23 13:54 | RAD ---
PROCEDURE: Right Knee Radiographs. HISTORY: repeat AP, obstructed by jon wound vac COMPARISON: 02/22/2018. FINDINGS: BONES: Postoperative findings related to tibial plateau fracture and repair. No evidence of orthopedic hardware failure. Incompletely visualized proximal tibial fracture better seen on the preoperative study 02/22/2018 JOINTS: Normal. No osteoarthritis. JOINT EFFUSION: None. OTHER FINDINGS: None. IMPRESSION: Satisfactory postoperative status.
--- NOTE | 2018-02-23 14:38 | CP.PCM.PN ---
Subjective - Date & Time of Evaluation Date of Evaluation: 02/23/18 Time of Evaluation: 09:30 - Subjective Subjective: Medicine progress note: Dr. Roberts Patient seen and examined at bedside. Patient's pain is well controlled, but she did spike a fever overnight. She denies any new complaints, however, including productive cough, chills, and shortness of breath. Objective - Vital Signs/Intake and Output Vital Signs (last 24 hours): Temp Pulse Resp BP Pulse Ox 99 F 90 20 135/69 93 L 02/23/18 06:13 02/23/18 09:17 02/23/18 06:00 02/23/18 09:17 02/23/18 06:00 Intake and Output: 02/23/18 02/23/18 06:59 18:59 Intake Total 1200 Output Total 400 Balance 800 - Medications Medications: Current Medications Acetaminophen (Tylenol 325mg Tab) 325 mg PO Q4 PRN PRN Reason: Fever >100.4 F Acetaminophen (Tylenol 325mg Tab) 650 mg PO Q6 PRN PRN Reason: TEMP>=99.5F Acetaminophen (Tylenol 650 Mg Supp) 650 mg RC Q6H PRN PRN Reason: TEMP>=99.5F Ascorbic Acid (Vitamin C 500 Mg Tab) 500 mg PO TID [facility] Last Admin: 02/23/18 09:17 Dose: 500 mg Atorvastatin Calcium (Lipitor) 10 mg PO HS [facility] Last Admin: 02/22/18 21:15 Dose: 10 mg Docusate Sodium (Colace) 100 mg PO BID [facility] Last Admin: 02/23/18 09:18 Dose: 100 mg Enoxaparin Sodium (Lovenox) 40 mg SC Q24H [facility] PRN Reason: Protocol Ergocalciferol (Drisdol 50,000 Intl Units Cap) 1 cap PO Q7D [facility] Last Admin: 02/21/18 21:21 Dose: 1 cap Fluoxetine HCl (Prozac) 20 mg PO HS [facility] Last Admin: 02/22/18 21:15 Dose: 20 mg Hydralazine HCl (Apresoline) 10 mg PO Q6H PRN PRN Reason: SBP>=170MMHG&/OR DBP>=100MMMHG Hydromorphone HCl (Dilaudid) 0.5 mg IVP Q4H PRN PRN Reason: Pain, severe (8-10) Last Admin: 02/23/18 13:48 Dose: 0.5 mg Lactated Ringer's (Lactated Ringer's) 1,000 mls @ 60 mls/hr IV .[id number] [facility] Last Admin: 02/23/18 06:08 Dose: 60 mls/hr Cefepime HCl (Maxipime 1gm) 1 gm in 100 mls @ 100 mls/hr IVPB Q12 DANA PRN Reason: Protocol Last Admin: 02/23/18 09:18 Dose: 100 mls/hr Insulin Human Regular (Humulin R Low) 0 units SC ACHS [facility] PRN Reason: Protocol Last Admin: 02/23/18 11:44 Dose: 1 units Levothyroxine Sodium (Synthroid) 200 mcg PO DAILY [facility] Last Admin: 02/23/18 09:16 Dose: 200 mcg Metoprolol Tartrate (Lopressor) 25 mg PO BID [facility] Last Admin: 02/23/18 09:17 Dose: 25 mg Multivitamins/Minerals (Therapeutic-M Tab) 1 tab PO DAILY [facility] Last Admin: 02/23/18 09:16 Dose: 1 tab Non-Formulary Medication (Alendronate Sodium/Vitamin D3 [Fosamax Plus D 70 Mg-5, 600 Iu]) 1 tab PO QWK [facility] Ondansetron HCl (Zofran Inj) 4 mg IVP Q4H PRN PRN Reason: Nausea/Vomiting Last Admin: 02/22/18 18:19 Dose: 4 mg Ondansetron HCl (Zofran Inj) 4 mg IVP ONCE PRN PRN Reason: Nausea/Vomiting Oxycodone/Acetaminophen (Percocet 5/325 Mg Tab) 2 tab PO Q4H PRN PRN Reason: Pain, moderate (4-7) Stop: 02/23/18 22:27 Last Admin: 02/23/18 09:43 Dose: 2 tab Pantoprazole Sodium (Protonix Ec Tab) 40 mg PO 0600,1600 [facility] Last Admin: 02/23/18 05:12 Dose: 40 mg Potassium Chloride (K-Dur 20 Meq Er Tab) 20 meq PO BRK [facility] Last Admin: 02/23/18 07:55 Dose: 20 meq Primidone (Mysoline) 50 mg PO QID [facility] Last Admin: 02/23/18 09:17 Dose: 50 mg - Labs Labs: 05/23/18 06:30 02/23/18 06:30 PT 12.2 SECONDS (9.4-12.5) 02/20/18 17:54 INR 1.07 (0.93-1.08) 02/20/18 17:54 APTT 27.8 Seconds (25.1-36.5) 02/20/18 17:54 - Constitutional Appears: Well - Head Exam Head Exam: ATRAUMATIC, NORMAL INSPECTION, NORMOCEPHALIC - Eye Exam Eye Exam: EOMI, Normal appearance, PERRL Pupil Exam: NORMAL ACCOMODATION, PERRL - ENT Exam ENT Exam: Mucous Membranes Moist, Normal Exam - Neck Exam Neck Exam: Full ROM, Normal Inspection. absent: Lymphadenopathy - Respiratory Exam Respiratory Exam: Clear to Ausculation Bilateral, NORMAL BREATHING PATTERN - Cardiovascular Exam Cardiovascular Exam: REGULAR RHYTHM, +S1, +S2. absent: Murmur - GI/Abdominal Exam GI & Abdominal Exam: absent: Tenderness - Extremities Exam Extremities Exam: Full ROM, Normal Capillary Refill, Normal Inspection. absent : Joint Swelling, Pedal Edema - Back Exam Back Exam: NORMAL INSPECTION - Neurological Exam Neurological Exam: Alert, Awake, CN II-XII Intact, Normal Gait, Oriented x3 - Psychiatric Exam Psychiatric exam: Normal Affect, Normal Mood - Skin Skin Exam: Dry, Intact, Normal Color, Warm Assessment and Plan - Assessment and Plan (Free Text) Assessment: 67 year old female presenting s/p fall with comminuted tibial diaphysis and fibular fractures. CT Head and CXR negative for acute trauma. Knee XR and Lower Extremity CT with results as mentioned. Patient's pain is well controlled at present. Initial white count elevated, likely reactive, then fell , other labs and vitals stable. Today, patient spiked a fever overnight and white count jumped to 11.9, so only one SIRS criteria. Patient's oxygen saturations are stable, chest XR negative for acute disease. Patient did show small LE on UA, but is asymptomatic, will observe for now. Plan Post-Operative Fever - Septic work up pending; patient given dose of doxy - On Maxipime; will continue to monitor Acute fracture - Tib/Fib - s/p R tibial ORIF - Ortho consult: Dr. Perla - Maxipime; percocet; LR's History HLD - Lipitor History Hypothyroidism - Synthroid History Diabetes - RISS Low, hold oral medications History Hypertension - Hydralazine 10 q6 PRN, hold home medications History Osteoarthritis - Alendonate sodium, Vit C GI/DVT Prophylaxis - Lovenox, Protonix
[2018-02-23] MEDS: Enoxaparin 40 mg Syringe SC SCH (14:48)
--- NOTE | 2018-02-24 01:51 | PN ---
DATE: 02/23/2018 SUBJECTIVE: The patient is seen out of bed to recliner in room 561, bed 1. The patient has some complaint of right knee pain. The patient underwent surgery overnight. PHYSICAL EXAMINATION: VITAL SIGNS: T-max 101.1; heart rate 76, 84, 90; blood pressure 135/69, 127/61, 122/71, 135/69; respiration 18 to 20; O2 sat is 100% to 93%. Intake output noted. HEENT: Head normocephalic, atraumatic. HEENT examination shows pinkish pale conjunctivae. Anicteric sclerae. Dry oral mucosa. No neck rigidity. CHEST: Kyphosis. LUNGS: No rales, crackles or wheezing. CARDIOVASCULAR: S1 and S2, regular rhythm. ABDOMEN: Soft. Positive bowel sounds. GENITALIA: Female. RECTAL: Deferred. EXTREMITIES: Positive right knee immobilizer, positive slight swelling of the lower extremity, right more than the left. No pitting edema, no calf numbness, no Bill's signs noted. MUSCULOSKELETAL: Shows a body mass index of 23. NEUROLOGIC: The patient is alert, awake, oriented x3. Cranial nerves II through XII limited. Gait examination is limited. VASCULAR: Palpable pulses. MUSCULOSKELETAL: . DIAGNOSTICS: 02/23/2018, WBC 11.9, hemoglobin and hematocrit are 10.5 and 31.8, platelets 164. Granulocytes, 81% segs. Sodium 137, potassium 4.2, chloride 100, CO2 of 27, anion gap 15, BUN 11, creatinine 0.6, GFR greater than 60, glucose 142. Fingerstick blood sugar 140, 145, 163, 158. Hemoglobin A1c is 6.3. Uric acid is 3.9, calcium 7.9, phosphorus 2.8, magnesium 1.8. LFTs are normal. Procalcitonin level is negative at 0.5. Urine cultures negative. Blood type A negative. The patient had repeat chest x-ray done for evaluation of fever; chest x-ray was negative. The patient had a knee x-ray done as per Orthopedics recommendations. Knee x-rays shows satisfactory postoperative status. Echo with Doppler reviewed. The patient was seen by Orthopedics physician assistant professor of spanish. IMPRESSION: 1. Right knee lateral tibial plateau fracture with degenerative joint disease. 2. Status post open reduction and internal fixation of the right lateral tibial plateau fracture, postop day #1. 3. Postoperative fever of 101.1. 4. Leukocytosis with granulocytosis. 5. Normocytic anemia. 6. [id number] type 2 diabetes mellitus with hemoglobin A1c of 6.3. 7. Hyperglycemia. 8. Hypovitaminosis D. 9. History of hypercholesteremia. 10. Pyuria and bacteriuria. 11. Left ventricular ejection fraction of 50% to 58% with grade 3 reversible restrictive diastolic dysfunction. 12. Trace aortic regurgitation, mild mitral regurgitation, mild tricuspid regurgitation, and trace pulmonic regurgitation. 13. Status post fall. 14. Constipation. 15. Osteoporosis. 16. Hypovitaminosis D. 17. Hypokalemia. 18. Hyperlipidemia. 19. Hypomagnesemia. 20. Hypothyroidism. PLAN: At this time, the patient has been ordered repeat labs for the morning. Blood and urine cultures ordered. Current consultation, Orthopedics and Cardiology. The patient has been currently on Fosamax 70 mg weekly, hydralazine 10 mg p.o. every 6 hours p.r.n., Colace 100 mg twice a day, Dilaudid 0.5 mg IV every 4 p.r.n., Drisdol 50,000 units weekly, Humulin low-dose sliding scale coverage before meals and at bedtime, K-Dur 20 mEq daily, Ringer's lactate 60 mL daily, Lipitor 10 mg at bedtime, Lopressor 25 mg twice a day, Lovenox 70 mg subcu every 24 hours, cefepime 1 g IV every 12, Mysoline 50 mg four times daily, Percocet 5/325 two tablets every 4 p.r.n., Protonix 40 mg daily, Prozac 20 mg at bedtime, Synthroid 200 mcg daily, Tylenol p.r.n. suppository every 6 p.r.n. The patient is given a dose of vancomycin 1 g stat, vitamin C 500 three times a day, Zofran 4 mg IV every 4 hours; incentive spirometry, out of bed to recliner. The patient seen by Business Intelligence Reporting Analyst. The patient is referred for acute rehab discharge after clearance by Orthopedics. The patient is seen by physical therapist. The patient did not do any physical therapy since surgery. The patient was seen by the physical therapist. Initial evaluation was recommended for acute rehab. Present, the patient will be continued on the above therapeutic intervention with close Orthopedics, Surgery and Cardiology followup. Dictated and electronically signed, not read. Braulio Roberts MD
[2018-02-24] MEDS: Pantoprazole 40 mg EC Tab PO SCH (06:33)
[2018-02-24 07:06] LABS: BASO # 0.03 K/mm3 (0.0-2.0); BASO % 0.3 % (0.0-3.0); EOS # 0.1 (0.0-0.7); EOS % 0.6 % (1.5-5.0); GRAN # 7.98 (1.4-6.5); GRAN % 78.7 % (50.0-68.0); LYMPH % 9.6 % (22.0-35.0); MEAN CELL VOLUME 92.5 fl (80.0-105.0); MEAN CORPUSCULAR HEMOGLOBIN 31.2 pg (25.0-35.0); MEAN CORPUSCULAR HGB CONC 33.7 g/dl (31.0-37.0); MEAN PLATELET VOLUME 10.2 fl (7.0-11.0); MONO # 1.1 (0.1-0.6); MONO % 10.8 % (1.0-6.0); RBC 3.21 10^6/uL (3.5-6.1); RED CELL DISTRIBUTION WIDTH 13.2 % (11.5-14.5); WHITE BLOOD COUNT 10.1 10^3/ul (4.5-11.0)
[2018-02-24 07:27] LABS: ALB/GLOB RATIO 1.1 (1.1-1.8); ALT/SGPT 35 U/L (7-56); AST/SGOT 36 U/L (14-36); BILIRUBIN,DIRECT 0.2 mg/dL (0.0-0.4); BLOOD UREA NITROGEN 9 mg/dL (7-21); CALCIUM 7.9 mg/dL (8.4-10.5); GFR AFRICAN-AMERICAN > 60; GFR NON-AFRICAN AMERICAN > 60
[2018-02-24 07:36] VITALS: RESP 20
--- NOTE | 2018-02-24 08:34 | CP.PCM.PN ---
Subjective - Date & Time of Evaluation Date of Evaluation: 02/24/18 Time of Evaluation: 08:31 - Subjective Subjective: Patient is POD #2 s/p ORIF right tibial plateau fracture. Patient alert and awake. Patient states pain is controlled Afebrile WBC 10.1 hgb 10 R knee: dressings and jon removed. Incision clean and intact. There is no erythema or drainage. No signs of cellulitis or infection. Incision cleaned with NSS and aquacel dressing applied. Calf and thigh are soft and nontender. NVI distally POD # 2 s/p ORIF R tibial plateau fx Cont DVT prophylaxis Cont pain control Cont incentive spirometer Cont NWB Plan to discharge to subacute rehab facility Objective - Vital Signs/Intake and Output Vital Signs (last 24 hours): Temp Pulse Resp BP Pulse Ox 99.1 F 90 20 153/75 H 92 L 02/24/18 06:00 02/24/18 06:00 02/24/18 06:00 02/24/18 06:00 02/24/18 06:00 Intake and Output: 02/24/18 02/24/18 06:59 18:59 Intake Total 1620 Balance 1620 - Medications Medications: Current Medications Acetaminophen (Tylenol 325mg Tab) 325 mg PO Q4 PRN PRN Reason: Fever >100.4 F Acetaminophen (Tylenol 325mg Tab) 650 mg PO Q6 PRN PRN Reason: TEMP>=99.5F Acetaminophen (Tylenol 650 Mg Supp) 650 mg RC Q6H PRN PRN Reason: TEMP>=99.5F Ascorbic Acid (Vitamin C 500 Mg Tab) 500 mg PO TID [facility] Last Admin: 02/23/18 17:32 Dose: 500 mg Atorvastatin Calcium (Lipitor) 10 mg PO HS [facility] Last Admin: 02/23/18 21:56 Dose: 10 mg Docusate Sodium (Colace) 100 mg PO BID [facility] Last Admin: 02/23/18 17:31 Dose: 100 mg Enoxaparin Sodium (Lovenox) 40 mg SC Q24H [facility] PRN Reason: Protocol Last Admin: 02/23/18 14:48 Dose: 40 mg Ergocalciferol (Drisdol 50,000 Intl Units Cap) 1 cap PO Q7D [facility] Last Admin: 02/21/18 21:21 Dose: 1 cap Fluoxetine HCl (Prozac) 20 mg PO HS [facility] Last Admin: 02/23/18 21:56 Dose: 20 mg Hydralazine HCl (Apresoline) 10 mg PO Q6H PRN PRN Reason: SBP>=170MMHG&/OR DBP>=100MMMHG Hydromorphone HCl (Dilaudid) 0.5 mg IVP Q4H PRN PRN Reason: Pain, severe (8-10) Last Admin: 02/23/18 23:55 Dose: 0.5 mg Lactated Ringer's (Lactated Ringer's) 1,000 mls @ 60 mls/hr IV .[id number] [facility] Last Admin: 02/23/18 06:08 Dose: 60 mls/hr Cefepime HCl (Maxipime 1gm) 1 gm in 100 mls @ 100 mls/hr IVPB Q12 DANA PRN Reason: Protocol Last Admin: 02/23/18 21:56 Dose: 100 mls/hr Insulin Human Regular (Humulin R Low) 0 units SC ACHS [facility] PRN Reason: Protocol Last Admin: 02/23/18 22:00 Dose: Not Given Levothyroxine Sodium (Synthroid) 200 mcg PO DAILY [facility] Last Admin: 02/23/18 09:16 Dose: 200 mcg Metoprolol Tartrate (Lopressor) 25 mg PO BID [facility] Last Admin: 02/23/18 17:33 Dose: 25 mg Multivitamins/Minerals (Therapeutic-M Tab) 1 tab PO DAILY [facility] Last Admin: 02/23/18 09:16 Dose: 1 tab Non-Formulary Medication (Alendronate Sodium/Vitamin D3 [Fosamax Plus D 70 Mg-5, 600 Iu]) 1 tab PO QWK [facility] Ondansetron HCl (Zofran Inj) 4 mg IVP Q4H PRN PRN Reason: Nausea/Vomiting Last Admin: 02/22/18 18:19 Dose: 4 mg Pantoprazole Sodium (Protonix Ec Tab) 40 mg PO 0600,1600 [facility] Last Admin: 02/24/18 06:33 Dose: 40 mg Potassium Chloride (K-Dur 20 Meq Er Tab) 20 meq PO BRK [facility] Last Admin: 02/23/18 07:55 Dose: 20 meq Primidone (Mysoline) 50 mg PO QID [facility] Last Admin: 02/23/18 21:56 Dose: 50 mg - Labs Labs: 02/24/18 06:20 02/24/18 06:20 PT 12.2 SECONDS (9.4-12.5) 02/20/18 17:54 INR 1.07 (0.93-1.08) 02/20/18 17:54 APTT 27.8 Seconds (25.1-36.5) 02/20/18 17:54
[2018-02-24] MEDS: Potassium Chloride 20 mEq ER Tab PO SCH (08:45)
[2018-02-24] MEDS: Insulin Reg-LOW-Coverage SC SCH ×2 (08:45→11:35)
[2018-02-24] MEDS ORDERED: Potassium Phosphate 15 MMOLE in Sodium Chloride 0.9% 250 ML IVPB ONE (09:36)
[2018-02-24] MEDS: Cefepime 1gm in NS 100ml 1 GM/100 ML BAG IVPB SCH (09:47)
[2018-02-24] MEDS: HYDROmorphone 0.5 mg/0.5 ml ISec IVP PRN ×2 (09:48→13:34)
[2018-02-24] MEDS: Multivitamin With Minerals Tab PO SCH (09:48)
[2018-02-24] MEDS: Levothyroxine 200 MCG TAB PO SCH (09:48)
[2018-02-24] MEDS: Lactated Ringer's 1,000 ML IV SCH (11:36)
--- NOTE | 2018-02-24 13:13 | US ---
HISTORY: Leg pain and swelling. Evaluate for DVT PHYSICIAN(S): Aubrey Sauceda MD. TECHNIQUE: Duplex sonography and color-flow Doppler with graded compression were used to evaluate the deep venous systems of both lower extremities. FINDINGS: The visualized deep venous systems of both lower extremities are sonographically normal and compressible. Normal wave forms and augmentation are seen. There is no sonographic evidence for deep venous thrombosis in the visualized segments of both lower extremities. IMPRESSION: No sonographic evidence for deep venous thrombosis in the visualized segments of both lower extremities.
[2018-02-24] MEDS: Enoxaparin 40 mg Syringe SC SCH (13:37)
[2018-02-24 14:53] VITALS: BP 136/80; PULSE 76; TEMP 98.8; O2SAT 90
--- NOTE | 2018-02-25 09:48 | DS ---
The patient is to be discharged after cleared by Orthopedics. According to the Rent Control Office Manager note, the patient has been accepted to [facility]. The patient's overnight nurse's notes were reviewed. PHYSICAL EXAMINATION: VITAL SIGNS: T-max 99.1, down to 98.8; pulse 76 to 90; blood pressure 136/80, 142/76, 153/75; respirations 20, O2 sat is mid 90%. HEENT: Head examination, normocephalic and atraumatic. HEENT examination shows pinkish pale conjunctivae. Anicteric sclerae. No oropharyngeal lesion. No neck rigidity. CHEST: Examination is symmetrical. LUNGS: Examination shows no rales, crackles or wheezing. CARDIOVASCULAR: Examination S1, S2, regular rhythm. Questionable soft systolic murmur, left sternal border, right second intercostal space, left second intercostal space. ABDOMEN: Soft. Positive bowel sounds. GENITALIA: Female. RECTAL: Examination is deferred. EXTREMITIES: Show positive 1+ pitting edema of the right lower extremity, right foot, right leg. Positive right knee immobilizer. Left lower extremity shows no pitting edema. No calf tenderness. MUSCULOSKELETAL: Examination shows a body mass index of 23. Cranial nerves II-XII limited, but intact. The patient was seen by Physical Therapy. DIAGNOSTICS: 02/24, WBC down to 10.1, hemoglobin and hematocrit 10 and 29.7, platelet 167. Granulocytes 78% segs. Sodium 136, potassium 4, chloride 100, CO2 25, anion gap 16, BUN 9, creatinine 0.5. GFR is greater than 60. Glucose 153, 137, 128, 149, 158; calcium 7.9; phosphorus 2.1. LFTs are normal. Procalcitonin level is 0.05. Vitamin D 25-hydroxy 22. Blood and urine cultures all negative. Blood type A negative. Venous Doppler of the both lower extremity was done for the right lower extremity swelling, which was negative for DVT. FINAL IMPRESSION, PLAN AND DISCHARGE DIAGNOSES: 1. Status post mechanical fall. 2. Right knee lateral tibial plateau fracture with degenerative joint disease. 3. Status post open reduction and internal fixation of the right lateral tibial plateau fracture, postop day #2. 4. Postoperative fever of 101.1 (resolved). 5. Leukocytosis with granulocytosis. 6. Hypertension. 8. Mild normocytic anemia. 9. Hypophosphatemia. 10. Hypovitaminosis D. 11. Type 2 noninsulin-requiring diabetes mellitus with hemoglobin A1c of 6.3. 12. Gait dysfunction. 13. Deconditioning. 14. Right lower extremity swelling. 15. Right tibial wound. 16. Proximal right tibial metaphysis impacted comminuted fracture with fracture line extending to the level of the tibial plateau posteriorly and laterally. 17. Comminuted fracture of the proximal fibula with displaced fracture fragment. 18. Tricompartmental degenerative joint disease of the joint line and spurring of the right knee. 19. Lipohemarthrosis with evidence of hematoma with some acute blood at the posterior aspect of the proximal fibula. 20. Comminuted fracture involving the proximal fibula with displaced fracture fragment. 21. History of left-sided cerebral arteriovenous malformation. 22. Left parietal lobe hyperdense process with small calcification and evidence association with the vessel. 23. Bilateral white matter hypoattenuation consistent with chronic ischemic small vessel disease of the brain. 24. Right posterior parietal scalp injury. 25. Maxillary sinus retention cyst versus polyps. PLAN: At this time, the patient has been accepted to [facility]. The patient is to be discharged to [facility] after cleared by Orthopedics. DISCHARGE MEDICATIONS: The patient will be discharged on: 1. Tylenol 650 mg p.o. every 6 hours p.r.n. 2. Actos 15 mg mg daily. 3. Fosamax 70 mg weekly. 4. Vitamin C 500 mg three times a day. 5. Calcium 500 mg three times a day. 6. Keflex 500 mg twice a day. 7. Colace 100 mg twice a day. 8. Lovenox 40 mg subcutaneous daily. 9. Vitamin D 50,000 units weekly. 10. Prozac 20 mg daily. 11. Hydralazine 10 mg p.o. every 6 hours p.r.n. 12. Hydrochlorothiazide 25 mg daily. 13. Regular insulin sliding scale coverage low dose. 14. Synthroid 200 mcg daily. 15. Cozaar 100 mg at bedtime and daily. 16. Glucophage 500 mg twice a day. 17. Lopressor 25 mg twice a day. 18. Multivitamin 1 tablet daily. 19. Protonix 40 mg daily. 20. K-Dur 20 mEq once a day. 21. Mysoline 50 mg four times a day. 22. Zocor 20 mg daily. 23. Drisdol 50,000 units weekly. 24. Dilaudid 0.5 mg IV every 4 hours p.r.n. The patient was given one dose of Lasix 40 mg IV prior to discharge because of the right leg swelling, Lipitor 10 mg at bedtime, Zocor 20 mg daily, Lopressor 25 mg twice a day, Lovenox 40 mg subcu daily, primidone 50 mg four times a day, Percocet to 5/325 two tablets every 4 hours p.r.n. The patient was given K-Phos rider, Prozac 20 mg daily, Synthroid 200 mcg daily, multivitamin 1 tablet daily, vitamin C 500 mg t.i.d., Zofran 4 mg IV every 4 hours p.r.n. At present, the patient was cleared for discharge to acute rehab if the patient is cleared by Orthopedics for discharge. Time spent in the entire discharge process is more than 45 minutes. Dictated and electronically signed, not read. Braulio Roberts MD
== END 2018-02-24 16:02 | DRG 493 ==
LOC: ED 13:43 → ERH 18:22 → 5RNO 19:46
PROVIDERS: ADMIT Internal Medicine; ATTEND Internal Medicine
PROC: 0HQ0XZZ Repair Scalp Skin, External Approach (ICD-10-PCS; 2018-02-20)
PROC: 0QSG04Z Reposition Right Tibia with Internal Fixation Device, Open Approach (ICD-10-PCS; principal; 2018-02-22 11:00)
DX: S82.141A Displaced bicondylar fracture of right tibia, initial encounter for closed fracture (principal); M25.08 Hemarthrosis, other specified site; N39.0 Urinary tract infection, site not specified; S01.01XA Laceration without foreign body of scalp, initial encounter; M17.11 Unilateral primary osteoarthritis, right knee; E11.65 Type 2 diabetes mellitus with hyperglycemia; I10 Essential (primary) hypertension; K59.00 Constipation, unspecified; M81.0 Age-related osteoporosis without current pathological fracture; R50.82 Postprocedural fever; J34.1 Cyst and mucocele of nose and nasal sinus; E55.9 Vitamin D deficiency, unspecified; E78.00 Pure hypercholesterolemia, unspecified; E78.5 Hyperlipidemia, unspecified; E03.9 Hypothyroidism, unspecified; D64.9 Anemia, unspecified; E83.42 Hypomagnesemia; I08.3 Combined rheumatic disorders of mitral, aortic and tricuspid valves; M48.061 Spinal stenosis, lumbar region without neurogenic claudication; R26.89 Other abnormalities of gait and mobility; Y92.9 Unspecified place or not applicable; W10.9XXA Fall (on) (from) unspecified stairs and steps, initial encounter; Z88.1 Allergy status to other antibiotic agents; Z79.84 Long term (current) use of oral hypoglycemic drugs